=== PATIENT | female | born 2005 | race Caucasian/White ===

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

== ENCOUNTER 2024-02-24 21:08 | Emergency (ER) | payer OTHER, SELFPAY ==
[2024-02-24] MEDS ORDERED: Ketorolac Tromethamine 30 MG (1 mL) VIAL ONE (21:42)
[2024-02-24] MEDS ORDERED: Cyclobenzaprine 10 MG TAB ONE (21:42)
[2024-02-24 21:49] LABS: Bilirubin Negative (Negative); Blood, Urine Negative (Negative); CAUTI Indications for Culture Dysuria,urgency,freq; Clarity Clear (Clear); Glucose, Urine (Dipstick) Normal (Negative); Ketone, Urine Negative (Negative); Leukocyte 75 Leu/uL (Negative); Nitrite Negative (Negative); Protein, Urine (Dipstick) Negative (Neg-Trace); RBC/HPF 0-3 HPF (0-3); Specific Gravity, Urine 1.005 (1.002-1.036); Urobilinogen Normal mg/dL (Less than 2)
[2024-02-24 21:51] LABS: Bacteria/HPF 1+ HPF (None Seen)
[2024-02-24 21:53] LABS: Urine Culture Reflex No No
== END 2024-02-24 22:37 | disposition home or self-care (01) ==
LOC: ERS 21:08
DX: M54.50 Low back pain, unspecified (principal)
CPT/HCPCS: 81001; 87086; 96372; 99283; J1885